=== PATIENT | male | born 1950 | race Hispanic/Latino ===

== ENCOUNTER 2017-09-09 08:08 | Outpatient (CLI) | payer MEDICARE, BC ==
--- NOTE | 2017-09-09 09:38 | RAD ---
ABDOMEN 1 VIEW: HISTORY: A 67-year-old male with a history of polycystic kidneys and renal calculus. FINDINGS: There is an approximately 0.5 x 0.7 cm diameter calculus overlying the right lower abdomen which cert ainly could represent a renal calculus. IMPRESSION: Evidence for a calcification right lower abdomen which could well represent a right renal calculus. This calculus appears slightly more prominent may well have enlarged somewhat from the prior study. POS: [facility]
--- NOTE | 2017-09-09 10:07 | ULT ---
ULTRASOUND RENAL BILATERAL STANDARD: Date: 09/09/17 HISTORY: Calculus of kidney. COMPARISON: Ultrasound of 08/27/16. FINDINGS: Incidental note of increased hepatic echotexture. The right kidney measures 12.7 x 5.5 x 5.6 cm witho ut mass, hydronephrosis, or abnormal calcifications. Left kidney measures 13.5 x 6.1 x 5.7 cm. There is mild left-sided hydroureter. There is an interpolar cyst measuring up to 1.9 cm. There appears to be an extrinsic impression on the bladder roof, likely bowel in nature. IMPRESSION: 1. New left moderate hydroureteronephrosis. 2. Similar appearance to the left renal cyst. CODE: T POS: [facility]
== END 2017-09-09 08:09 | disposition home or self-care (01) ==
LOC: ULT 08:08
PROVIDERS: ATTEND Urology
DX: N20.0 Calculus of kidney (principal); Q61.3 Polycystic kidney, unspecified; N13.30 Unspecified hydronephrosis
CPT/HCPCS: 74000; 76770

== ENCOUNTER 2017-09-16 08:01 | Outpatient (CLI) | payer MEDICARE, BC ==
[2017-09-16 09:03] LABS: Bilirubin Negative (Negative); Blood, Urine Moderate (Negative); Glucose, Urine (Dipstick) Negative (Negative); Ketone, Urine Negative (Negative); Nitrite Negative (Negative); Protein, Urine (Dipstick) > or equal to 300 mg/dL (Neg-Trace); Urobilinogen 0.2 mg/dL (0.2-1.0)
[2017-09-16 09:04] LABS: Anion Gap 9 mmol/L (10-20); BUN (Urea Nitrogen) 9 mg/dL (8.4-25.7); Bacteria/HPF None Seen HPF (None Seen); Calc. Creatinine Clearance 0 mL/min (70-130); Calcium 8.8 mg/dL (7.8-10.44); Carbon Dioxide 29 mmol/L (23-31); Chloride 104 mmol/L (98-107); Estimated GFR-MDRD Greater than 90; Hyaline Casts/LPF 0-3 HYALINE CAST LPF (0-3 Hyaline); RBC/HPF 21-50 HPF (0-3); Squamous Epithelial 0-3 HPF (0-3); WBC/HPF 0-3 HPF (0-3)
--- NOTE | 2017-09-16 09:57 | CT ---
CT ABDOMEN AND PELVIS WITHOUT CONTRAST: Multiple axial tomograms obtained through the abdomen and pelvis without IV enhancement. HISTORY: Renal calculi. COMPARISON: Comparison is made to CT abdomen and pelvis of 09/27/14. FINDINGS: The lung bases are clear. Liver, spleen, pancreas, and adrenal glands appear unremarkable for an une nhanced exam. Review of the kidneys again shows a small cyst inferior pole of the left kidney which measures approx imately 1.8 cm. This is a stable finding. There are at least 2 small nonobstructing calculi in the upper collecting structures of the left kidn ey. One measures approximately 2 mm in the mid pole collecting structures and another measures appro ximately 3 mm in the lower pole collecting structures. There is a 7-8 mm calculus in the lower pole collecting structures of the right kidney. The ureters are normal caliber. There is no evidence of ureteral calculus or obstruction. No hydron ephrosis. Urinary bladder is minimally distended and appears unremarkable. The small bowel loops appear normal. Colon unremarkable. Colonic mucosal lesions are not excluded. Aorta is normal caliber. No adenopathy. Prostate appears upper normal size. Osseous structures unremarkable. IMPRESSION: 1. There are nonobstructing calculi in the upper collecting structures of both kidneys as described. 2. Small left renal cyst is stable. 3. No acute intraabdominal process. POS: [facility]
== END 2017-09-16 08:02 | disposition home or self-care (01) ==
LOC: CT 08:01
PROVIDERS: ATTEND Urology
DX: N20.0 Calculus of kidney (principal); N28.1 Cyst of kidney, acquired
CPT/HCPCS: 36415; 74176; 80048; 81001; 87086; G0103

== ENCOUNTER 2018-02-10 12:12 | Outpatient (CLI) | payer MEDICARE, BC ==
--- NOTE | 2018-02-10 13:45 | RAD ---
PORTABLE AP ABDOMINAL RADIOGRAPH: DATE: 02/10/18. HISTORY: Calculus of kidney. COMPARISON: 09/09/17. FINDINGS: Calcifications again overlie the inferior pole of each renal shadow suggesting bilateral renal calcul i. No additional suspicious calcifications are seen. The bowel gas pattern is nonspecific. Degener ative changes are again seen in the spine. There is bilateral hip osteoarthritis. IMPRESSION: Bilateral nephrolithiasis. POS: [facility]
== END 2018-02-10 12:13 | disposition home or self-care (01) ==
LOC: RAD 12:12
PROVIDERS: ATTEND Urology
DX: N20.0 Calculus of kidney (principal)
CPT/HCPCS: 74018

== ENCOUNTER 2018-09-15 12:29 | Outpatient (CLI) | payer MEDICARE, BC ==
--- NOTE | 2018-09-15 15:25 | RAD ---
KUB: History: Renal calculus. Comparison: 02-10-18 FINDINGS: Bowel gas pattern appears nonobstructed. The calcification overlying the lower pole of the right kidn ey is again identified and unchanged. It is much more difficult to visualize what appears to be a kwame nt calcification near the lower pole of the left kidney also still appears to be present. No definiti ve ureteral calculus. There are arthritic changes of the spine and hips. IMPRESSION: Stable exam. POS: [facility]
--- NOTE | 2018-09-15 15:26 | ULT ---
STANDARD BILATERAL RENAL ULTRASOUND: HISTORY: Renal stones. COMPARISON: CT from 09/16/2017 TECHNIQUE: Real-time, martínez-scale, and color evaluation of the kidneys was performed. FINDINGS: The urinary bladder is unremarkable. Both ureteral jets are visualized. The right kidney measures 13.7 x 6.4 x 6 cm. The left kidney measures 13.1 x 6.4 x 5.9 cm. There is some intrapolar right cortical scarring and left intrapolar cortical scarring. There is a 1.[address] of the left kidney. No abnormal calcifications are appreciated. No obstructive uropathy. IMPRESSION: No renal calcifications nor evidence of obstructive uropathy. POS: [facility]
== END 2018-09-15 12:30 | disposition home or self-care (01) ==
LOC: BICULT 12:29
PROVIDERS: ATTEND Urology
DX: N20.0 Calculus of kidney (principal); Q61.3 Polycystic kidney, unspecified
CPT/HCPCS: 74018; 76770; 80048; 80061; 80076; 81001; 83036; 87086; G0103; 36415

== ENCOUNTER 2019-11-25 08:43 | Outpatient (CLI) | payer MEDICARE, BC ==
[2019-11-25 09:03] LABS: Bacteria/HPF None Seen HPF (None Seen); Bilirubin Negative (Negative); Blood, Urine 2+ (Negative); Clarity Clear (Clear); Glucose, Urine (Dipstick) Normal (Negative); Leukocyte Negative Leu/uL (Negative); Nitrite Negative (Negative); Protein, Urine (Dipstick) Negative (Neg-Trace); RBC/HPF Greater than 50 HPF (0-3); Squamous Epithelial None Seen HPF (0-3); Urobilinogen Normal mg/dL (Less than 2); WBC/HPF None Seen HPF (0-3)
--- NOTE | 2019-11-25 09:30 | RAD ---
ABDOMEN 1 VIEW: Date: 11/25/2019 HISTORY: Calculus of kidney. COMPARISON: 09/15/2018. FINDINGS: Several right-sided renal calculi are noted. Lumbar spine spondylosis. No evidence for ureteral calcu tonia. IMPRESSION: Stable nonobstructing right lower pole renal calculi. POS: [facility]
== END 2019-11-25 08:44 | disposition home or self-care (01) ==
LOC: RAD 08:43
PROVIDERS: ATTEND Urology
DX: Z12.5 Encounter for screening for malignant neoplasm of prostate (principal); N20.0 Calculus of kidney; R35.0 Frequency of micturition; N40.1 Benign prostatic hyperplasia with lower urinary tract symptoms
CPT/HCPCS: 74018; 81001; 87086; G0103; 36415

== ENCOUNTER 2020-07-22 06:43 | Outpatient (CLI) | payer MEDICARE, BC, OTHER ==
[2020-07-22 13:51] LABS: Hemoglobin 15.3 g/dL (14.0-18.0); Mean Corpuscular HGB CONC 36.3 g/dL (32.0-36.0); Mean Corpuscular Volume 91.1 fL (78.0-98.0); Mean Platelet Volume 8.2 fL (7.4-10.4); Platelet Count 170 thou/uL (130-400); RBC Distribution Width 11.4 % (11.5-14.5); Red Blood Cell (RBC) Count 4.63 mill/uL (4.70-6.10)
[2020-07-22 13:56] LABS: INR-International Normal Ratio 1.1; Prothrombin Time 14.1 sec (12.0-14.7)
[2020-07-22 13:57] LABS: PTT 32.9 sec (22.9-36.1)
[2020-07-22 14:04] LABS: Chloride 105 mmol/L (98-107); Potassium 3.8 mmol/L (3.5-5.1); Sodium 140 mmol/L (136-145)
[2020-07-22 14:05] LABS: Calcium 8.6 mg/dL (7.8-10.44); Glucose 190 mg/dL (80-115)
[2020-07-22 14:07] LABS: Anion Gap 17 mmol/L (10-20); Carbon Dioxide 22 mmol/L (23-31)
[2020-07-22 14:09] LABS: BUN (Urea Nitrogen) 14 mg/dL (8.4-25.7); Calc. Creatinine Clearance 0 mL/min (70-130); Estimated GFR-MDRD 80
[2020-07-22 16:38] LABS: Bacteria/HPF None Seen HPF (None Seen); Bilirubin Negative (Negative); Blood, Urine 3+ (Negative); Clarity Clear (Clear); Glucose, Urine (Dipstick) 500 mg/dL (Negative); Ketone, Urine Trace mg/dL (Negative); Leukocyte Negative Leu/uL (Negative); Nitrite Negative (Negative); Protein, Urine (Dipstick) 30 mg/dL (Neg-Trace); RBC/HPF Greater than 50 HPF (0-3); Specific Gravity, Urine 1.025 (1.002-1.036); Squamous Epithelial 0-3 HPF (0-3); Urobilinogen Normal mg/dL (Less than 2); WBC/HPF 0-3 HPF (0-3); pH, Urine 5.5 (5.0-9.0)
[2020-07-22 19:47] LABS: SARS-CoV-2 MS2 Positive; SARS-CoV-2 N Gene Negative; SARS-CoV-2 S Gene Negative; SARS-CoV-2 by NAA Not Detected (NotDetected); SARS-CoV-2 orf1ab Negative
--- NOTE | 2020-07-26 14:16 | EKG ---
Test Reason : Blood Pressure : / mmHG Vent. Rate : 073 BPM Atrial Rate : 073 BPM P-R Int : 134 ms QRS Dur : 088 ms QT Int : 402 ms P-R-T Axes : 063 033 038 degrees QTc Int : 442 ms Normal sinus rhythm Normal ECG No previous ECGs available Confirmed by TYLER CALLAHAN ([id number]) on 07/26/2020 2:15:34 PM Referred By: RAZ Confirmed By:TYLER CALLAHAN
== END 2020-07-22 06:44 | disposition home or self-care (01) ==
LOC: LABBT 06:43
PROVIDERS: ATTEND Urology
DX: Z01.818 Encounter for other preprocedural examination (principal); Z20.828 Contact with and (suspected) exposure to other viral communicable diseases
CPT/HCPCS: 80048; 81001; 85027; 85610; 85730; 87086; 93005; U0003; 87635; 93010

== ENCOUNTER 2020-07-27 06:15 | Day surgery (SDC) | payer MEDICARE, BC ==
[2020-07-22 15:14] VITALS: BMI 25.1
[2020-07-27] MEDS ORDERED: Levofloxacin 500 mg/D5W 100 ml Premix Bag ONE (06:55)
--- NOTE | 2020-07-27 07:44 | RAD ---
Abdomen one view HISTORY: Renal stone. Preop. COMPARISON: 11/25/2019. FINDINGS: Gas and stool throughout the bowel partially obscure the renal outlines. An oval 1.1 cm smo othly marginated calcification projecting over the inferior pole of the right renal shadow is similar in appearance to the prior study. The smaller calcifications immediately inferior to the larg est are less conspicuous than on the prior study. No stones are apparent over the expected course of either ureter. Phleboliths project over the pelvis . Degenerative changes lumbar spine and hips. IMPRESSION : Right renal calculi appear unchanged from the prior exam.
[2020-07-27] MEDS ORDERED: Fentanyl 100 MCG/2 ML VIAL ONE ×2 (08:22→09:36)
[2020-07-27] MEDS ORDERED: Midazolam HCl 2 mg/2 ml Vial ONE (08:22)
[2020-07-27] MEDS ORDERED: Phenazopyridine HCl 100 MG TAB ONE ×2 (09:32)
[2020-07-27] MEDS ORDERED: Lidocaine 1% PF 5 ML VIAL ONE (09:40)
[2020-07-27] MEDS ORDERED: Ondansetron PF 4 MG/2 ML Vial ONE (09:40)
[2020-07-27] MEDS ORDERED: PROPOFOL 200 MG/20 ML VIAL ONE (09:40)
--- NOTE | 2020-07-27 11:17 | OP ---
DATE OF PROCEDURE: 07/27/2020 PRIMARY CARE PHYSICIAN: Christine Mejia MD PREOPERATIVE DIAGNOSES: 1. A 69-year-old male with history of benign prostatic hyperplasia, IPSS score of 18. 2. History of urethral stricture, mild meatal stenosis. 3. History of nonobstructing right lower pole 1 to 1.2 cm renal calculi. POSTOPERATIVE DIAGNOSES: 1. A 69-year-old male with history of benign prostatic hyperplasia, IPSS score of 18. 2. History of urethral stricture, mild meatal stenosis. 3. History of nonobstructing right lower pole 1 to 1.2 cm renal calculi. PROCEDURES PERFORMED: Cystoscopy, UroLift implant x4, meatal calibration dilatation with Noble sounds. ANESTHESIA: LMA. COMPLICATIONS: None apparent. DISPOSITION: To recovery room in stable condition. INTRAOPERATIVE FINDINGS: 1. No gross meatal stenosis, however, required urethral calibration with Osvaldo sounds to pass a 21-S[place] cystoscope. 2. Multiple proximal penile urethral stricture, nonobstructing, caliber about 16-S[place] Arabian. 3. Bilobar hyperplasia of the prostate with no median lobe. 4. Bladder grossly unremarkable. INDICATIONS FOR PROCEDURE AND HISTORY: Mr. Cochran is a 69-year-old male with history of urolithiasis, on observation for nonobstructing renal calculi. The patient is encouraged to proceed with elective treatment at a later date. However, desires to defer for now. He presents today for treatment of his BPH due to symptoms as he desires to transition off his BPH medication, moreover has persistent symptoms despite on medication. We discussed risks and complications of UroLift, alternatives of the procedure was also discussed with him in detail and he desires to proceed with less invasive approach. Risks and complications including, but not limited to, bleeding, pain, infection, injury to adjacent organs, urosepsis, chronic pain, possible incrustation, migration of implants resulting in further surgery. All questions answered to his satisfaction. He desired to proceed. DESCRIPTION OF PROCEDURE: After an informed consent was signed, the patient was taken to the operating room, placed in a dorsal lithotomy position with the genital area prepped and draped in the usual surgical sterile fashion. We first utilized a 21-S[place] Arabian cystoscope. Due to possibility of mild resistance at the fossa, I did not forcibly engage, therefore calibrated his meatus. This calibrated with ease from 16-S[place] Arabian. Subsequently, trans-dilated to 24-S[place] Arabian without difficulty and subsequently, the cystoscope passed without significant issues. There was evidence of multiple penile urethral stricture, however, these were nonobstructing. There was some changes of urethral fibrosis on the mucosa. The scope was easily maneuvered atraumatically. Caliber of the proximal penile urethral stricture appeared to be about 16-[place]. He has about 2 or 3 annular rings that are nonobstructing easily maneuvered. Prostatic urethra was staged demonstrating bilobar hyperplasia of the prostate with no median lobe. The bladder was entered, which demonstrated trabeculation, no bladder stones were seen. UOs were well away from the bladder neck. We then transitioned to the UroLift cystoscope with a visual obturator. This was passed without difficulty to the level of the prostatic urethra and we proceeded to implant the left lateral lobe fist, staying about 1.5 cm distal to the bladder neck. A total of 2 implants were put in the left, 2 on the right, a total of 4 implants. He only required implants at the level of the proximal prostatic urethra, as the implants opened up his prostatic fossa with a nice anterior channel. Stacking maneuver was performed proximally, as he did have some redundant floppy appearing anterior tissue. Stacking maneuver was performed without difficulty and he had a nice anterior channel with an open bladder neck. He tolerated the procedure well. An 18-Saudi Arabian 30 mL Valadez catheter was passed without significant issues. I will watch him for degree of hematuria and initiate voiding trial if no significant hematuria of concern. He is discharged with ciprofloxacin for 5 days, Azo. Job ID: [id number] [facility]
== END 2020-07-27 14:20 | disposition home or self-care (01) ==
LOC: SDC 06:15
PROVIDERS: ATTEND Urology
PROC: 0T7D8DZ Dilation of Urethra with Intraluminal Device, Via Natural or Artificial Opening Endoscopic (ICD-10-PCS; principal; 2020-07-27)
DX: N40.1 Benign prostatic hyperplasia with lower urinary tract symptoms (principal); R35.0 Frequency of micturition; N35.911 Unspecified urethral stricture, male, meatal; N20.0 Calculus of kidney; E11.9 Type 2 diabetes mellitus without complications; Q61.3 Polycystic kidney, unspecified; Z79.84 Long term (current) use of oral hypoglycemic drugs; Z79.899 Other long term (current) drug therapy
CPT/HCPCS: 74018; 82962; C1889; C9740; 36416; J1956; J2250; J2405; J2704; J3010

== ENCOUNTER 2020-09-09 08:14 | Outpatient (CLI) | payer MEDICARE, BC ==
--- NOTE | 2020-09-09 08:52 | RAD ---
Exam: Abdomen one view COMPARISON: 07/27/2020 HISTORY: Renal calculus. FINDINGS: Nonspecific bowel gas pattern. No abnormal findings with regards to the osseous structures. Stable 1.1 cm right renal calculus. IMPRESSION: Stable right renal calculus.
== END 2020-09-09 08:15 | disposition home or self-care (01) ==
LOC: BICRAD 08:14
PROVIDERS: ATTEND Urology
DX: N20.0 Calculus of kidney (principal)
CPT/HCPCS: 74018; 81001; 87086

== ENCOUNTER 2020-09-21 06:37 | Outpatient (CLI) | payer MEDICARE, BC ==
[2020-09-21 15:14] LABS: Bilirubin Neg (Negative); Blood, Urine 250 (Negative); Glucose, Urine (Dipstick) Normal (Negative); Ketone, Urine 5 mg/dL (Negative); Leukocyte 25 (Negative); Nitrite Negative (Negative); Protein, Urine (Dipstick) 30 mg/dl (Neg-Trace); Specific Gravity, Urine 1.025 (1.002-1.036); Urobilinogen Normal mg/dL (Less than 2)
[2020-09-21 15:19] LABS: Hemoglobin 14.9 g/dL (14.0-18.0); Mean Corpuscular HGB CONC 35.7 G/DL (32.0-36.0); Mean Corpuscular Hemoglobin 31.9 PG (27.0-33.0); Mean Corpuscular Volume 89.3 fl (80.0-100.0); Mean Platelet Volume 10.2 fl (7.4-10.4); Platelet Count 152 10x3/uL (130-400); RBC Distribution Width 12.2 % (11.5-14.5); Red Blood Cell (RBC) Count 4.67 10x6/uL (4.40-5.80); White Blood Cell (WBC) Count 6.1 10x3/uL (4.5-11.0)
[2020-09-21 15:40] LABS: Anion Gap 13 mmol/L (10-20); BUN (Urea Nitrogen) 14 mg/dL (8.4-25.7); Calc. Creatinine Clearance 0 mL/min (70-130); Calcium 8.9 mg/dL (7.8-10.44); Carbon Dioxide 27 mmol/L (23-31); Chloride 102 mmol/L (98-107); Estimated GFR-MDRD 71; Glucose 150 mg/dL (80-115); Potassium 4.2 mmol/L (3.5-5.1); Sodium 138 mmol/L (136-145)
[2020-09-21 15:41] LABS: INR-International Normal Ratio 1.1; PTT 27.6 sec (22.0-33.0); Prothrombin Time 11.4 sec (9.5-12.1)
[2020-09-21 16:06] LABS: Clarity Hazy (Clear); RBC/HPF Greater than 50 HPF (0-3)
[2020-09-21 16:07] LABS: Bacteria/HPF None Seen HPF (None Seen); Mucous/LPF 1+ LPF (<2+)
[2020-09-22 03:08] LABS: SARS-CoV-2 MS2 Positive; SARS-CoV-2 N Gene Negative; SARS-CoV-2 S Gene Negative; SARS-CoV-2 by NAA Not Detected (NotDetected); SARS-CoV-2 orf1ab Negative
--- NOTE | 2020-09-23 07:07 | EKG ---
Test Reason : PREOP Blood Pressure : / mmHG Vent. Rate : 068 BPM Atrial Rate : 068 BPM P-R Int : 130 ms QRS Dur : 084 ms QT Int : 424 ms P-R-T Axes : 064 062 077 degrees QTc Int : 450 ms Normal sinus rhythm Normal ECG Confirmed by DR. Arina DORANTES ([id number]) on 09/23/2020 7:07:35 AM Referred By: APURVA Confirmed By:DR. Arina DORANTES
== END 2020-09-21 06:38 | disposition home or self-care (01) ==
LOC: LABBT 06:37
PROVIDERS: ATTEND Urology
DX: Z01.818 Encounter for other preprocedural examination (principal); N20.0 Calculus of kidney; Z20.828 Contact with and (suspected) exposure to other viral communicable diseases
CPT/HCPCS: 80048; 81001; 85027; 85610; 85730; 87086; 93005; U0003; 87635; 93010

== ENCOUNTER 2020-09-26 08:31 | Day surgery (SDC) | payer MEDICARE, BC ==
[2020-09-23 11:34] VITALS: BMI 26.0
[2020-09-26] MEDS ORDERED: Levofloxacin 500 mg/D5W 100 ml Premix Bag ONE (09:05)
--- NOTE | 2020-09-26 09:36 | RAD ---
KUB: DATE: 09/26/2020. COMPARISON: 09/09/2020. HISTORY: Preoperative patient. FINDINGS: There is a calcification within the mid right abdomen measuring 1 cm in craniocaudal dimension just s uperior to the medial aspect of the right iliac wing which may represent a stone within the lower mariaa e of the right kidney. This appearance is stable when compared to the 08/09/2020 examination. There may be an additional smaller calcification along the inferior margin of this calcification, this 2nd adjacent calcification measuring in the 4 mm range, best seen on image 1 of 2. The bowel gas patter n appears nonobstructed. Clips overlie the pubic symphysis. There is degenerative change involving b ilateral hips and the lower lumbar spine. IMPRESSION: Calcifications within the right mid abdomen suggesting calculi within the lower pole of the right kid clive measuring 1 cm and 4 mm respectively. POS: [facility]
[2020-09-26] MEDS ORDERED: Midazolam HCl 2 mg/2 ml Vial ONE (09:38)
[2020-09-26] MEDS ORDERED: Dexamethasone 20 MG/5 ML VIAL ONE (10:47)
[2020-09-26] MEDS ORDERED: Ondansetron PF 4 MG/2 ML Vial ONE (10:47)
[2020-09-26] MEDS ORDERED: PROPOFOL 200 MG/20 ML VIAL ONE (10:47)
[2020-09-26] MEDS ORDERED: Lidocaine 1% PF 5 ML VIAL ONE (10:47)
[2020-09-26] MEDS ORDERED: Iothalamate Meglumine 60% 50 ML VIAL FS ONE (10:50)
[2020-09-26] MEDS ORDERED: Fentanyl 100 MCG/2 ML VIAL ONE (11:04)
[2020-09-26] MEDS ORDERED: Phenazopyridine HCl 100 MG TAB ONE (12:58)
--- NOTE | 2020-09-26 14:12 | RAD ---
RETROGRADE PYELOGRAM: A total of 36 fluoroscopic images are presented from the OR. INDICATION: Fluoroscopic imaging during retrograde pyelogram procedure and right ureteral stent placement. FINDINGS/IMPRESSION: These images show wire and catheter into the right ureter and right upper collecting structures with opacification of the right collecting structures. These images demonstrate placement of a double-pig tail right ureteral stent. POS: [facility]
--- NOTE | 2020-09-26 18:03 | OP ---
DATE OF PROCEDURE: 09/26/2020 PREOPERATIVE DIAGNOSIS: A 70-year-old male with history of right lower pole renal calculi, 1.1 to 1.2 cm. POSTOPERATIVE DIAGNOSIS: A 70-year-old male with history of right lower pole renal calculi, 1.1 to 1.2 cm. PROCEDURES PERFORMED: Cystoscopy, right retrograde pyelogram, 6 x 24 double-J ureteral stent with Dangler taped to pubic symphysis, balloon dilatation of the distal ureter, meatal calibration dilatation with [place] sounds, flexible ureteroscopy, pyeloscopy, laser lithotripsy, basket extraction of stone fragments. ANESTHESIA: General. COMPLICATIONS: None apparent. SPECIMEN: Stone fragments for chemical analysis. INTRAOPERATIVE FINDINGS: 1. Mild meatal stenosis calibrated to 14 and 16-Icelandic dilated to 24-Icelandic with ease. 2. Stable penile bulbar urethral stricture wide caliber about two or three #16-Icelandic caliber, in which a 16-Icelandic catheter was able to be intubated with ease. 3. Bilobar hyperplasia status post UroLift with good anterior channel, right one urethral tap still visible in the prostatic urethra, with no encrustation of concern 4. Bladder grossly unremarkable. 5. Right lower pole large renal calculi consistent with CT. INDICATIONS FOR PROCEDURE AND HISTORY: Mr. Cochran is a pleasant 70-year-old male with history of recurrent urolithiasis. He has previously undergone ureteroscopy, laser lithotripsy in the past and desires to proceed with elective treatment of his large right lower pole calculi. Risks and complications of procedure have been discussed with him in detail including, but not limited to: Bleeding, pain, infection, injury to adjacent organs, urosepsis, ureteral renal kidney injury, possible secondary procedure was reviewed, and all questions answered to his satisfaction and desired to proceed. DESCRIPTION OF PROCEDURE: After an informed consent was signed, the patient was taken to the operating room, placed in a dorsal lithotomy position with the genital area prepped and draped in the usual surgical sterile fashion. A 21-Icelandic cystoscope was utilized. The meatus demonstrated mild meatal stenosis, in which had difficulty passing a 21-Icelandic scope. Therefore, we gently calibrated his meatus about 14 and 16-Icelandic caliber, subsequently dilated to 24-Icelandic with ease. Subsequently, we passed the scope without significant issues and there were stable penile urethral strictures nonobstructing wide caliber, about 16-Icelandic in caliber about two or three in number and I was able to be easily negotiated and did not warrant treatment. Prostatic urethra demonstrated changes consistent with UroLift with reduction of his lateral obstructing lobes. There was one urethral tap in the right lateral wall still visible. However, this is in the mid prostatic urethra with no incrustation of concern. Bladder was entered, which demonstrated no visible taps. The right UO was intubated with an open-ended catheter and a retrograde pyelogram performed opacifying the collecting system demonstrating a right lower pole stone with an acute infundibular angle about 45 degrees. No hydronephrosis, no filling defect, and a 0.035 Sensor wire was placed into the right upper pole. Using a [employer] 4 cm 12-Icelandic balloon dilator, we dilated the intramural ureter, subsequently able to pass a dual-lumen access sheath to the level of the proximal ureter and a second safety wire was passed 0.035 SuperStiff. At this time, a 12 x 14-Icelandic navigator was able to be passed without significant issues to the level of the proximal ureter. A flexible ureteroscope was then advanced over the working wire. The working wire was then subsequently removed. We surveyed the collecting system demonstrating a large right lower pole stone. Although, I was able to visualize the stone, it was difficult to engage the laser fiber due to an acute infundibular angle. Therefore, using a Zero Tip Nitinol basket, we negotiated the stone into the right upper pole. This was rendered free into the right lower pole and released and using 273 ball-tip micron laser fiber, we fragmented the stone into multiple tiny pieces. Some of the stones migrated into the upper and the mid pole and using a Zero Tip Nitinol basket, we basket extracted all visible debris that was amendable. What remained in the right upper pole was tiny punctate debris that is too small to basket a laser. The ureter was free without any stone debris or trauma of concern, and a 6 x 24 double-J ureteral stent was passed to the level of the kidney and with adequate redundancy in the bladder. As there was endoscopic clearance, the Dangler was taped to the patient's pubic symphysis and bladder completely emptied. He will follow up with me Saturday for stent pull on Dangler. Postop medications sent to his home prescription pharmacy. Job ID: [id number] [facility]
== END 2020-09-26 14:35 | disposition home or self-care (01) ==
LOC: SDC 08:31
PROVIDERS: ATTEND Urology
PROC: 0TC38ZZ Extirpation of Matter from Right Kidney Pelvis, Via Natural or Artificial Opening Endoscopic (ICD-10-PCS; principal; 2020-09-26)
PROC: 0T768DZ Dilation of Right Ureter with Intraluminal Device, Via Natural or Artificial Opening Endoscopic (ICD-10-PCS; 2020-09-26)
PROC: 0T768DZ Dilation of Right Ureter with Intraluminal Device, Via Natural or Artificial Opening Endoscopic (ICD-10-PCS; 2020-09-26)
DX: N20.0 Calculus of kidney (principal); N35.911 Unspecified urethral stricture, male, meatal; N40.1 Benign prostatic hyperplasia with lower urinary tract symptoms; R35.0 Frequency of micturition; E11.9 Type 2 diabetes mellitus without complications; Q61.3 Polycystic kidney, unspecified; Z79.84 Long term (current) use of oral hypoglycemic drugs; Z79.899 Other long term (current) drug therapy
CPT/HCPCS: 74018; 74420; 82365; 88300; J1100; J1956; J2250; J2405; J2704; J3010

== ENCOUNTER 2021-01-11 08:20 | Outpatient (CLI) | payer MEDICARE, BC | END 2021-01-11 08:21 | disposition home or self-care (01) | LOC: BICULT 08:20 | PROVIDERS: ATTEND Urology | DX: N20.0 Calculus of kidney (principal); Q61.3 Polycystic kidney, unspecified; Z12.5 Encounter for screening for malignant neoplasm of prostate; R35.0 Frequency of micturition; N35.919 Unspecified urethral stricture, male, unspecified site | CPT/HCPCS: 74018; 76770; 80048; 81001; G0103; 36415 ==